=== PATIENT | female | born 1955 | race Caucasian/White ===

== ENCOUNTER → 2020-05-08 16:23 | Outpatient (CLI) | payer BC, SELFPAY ==
--- NOTE | ~2020-05-08 | XR_ITS ---
XR hip RT min 2V 05/08/2020 17:02 Indication: Right hip pain Procedure: 2 views right hip Comparison: No prior studies for comparison. Findings: There is severe osteoarthritis of the right hip characterized by joint space narrowing, sub chondral sclerosis and marginal osteophytosis. No fracture or traumatic malalignment. No significant soft tissue abnormality. No foreign bodies. Impression: 1: Severe osteoarthritis of the right hip. Reviewed, dictated and finalized at location A. Impression: 1: Severe osteoarthritis of the right hip.
--- NOTE | ~2020-05-08 | XR_ITS ---
XR lumbar spine 2-3V 05/08/2020 17:02 Indication: Low back pain Procedure: 3 views lumbar spine Comparison: No prior studies for comparison. Findings: There is disc narrowing at L4-5 and L5-S1 with moderate facet hypertrophy at these levels. There is prominent dorsal osteophytes at L4-5. There is degenerative anterolisthesis at L3-4. No acut e fracture or traumatic malalignment. There are cholecystectomy clips. Sacral foramen are symmetric. Impression: 1: Moderate lumbar spondylosis. Reviewed, dictated and finalized at location A. Impression: 1: Moderate lumbar spondylosis.
== END ==
PROVIDERS: PCP Internal Medicine; Visit Provider Internal Medicine
DX: M47.896 Other spondylosis, lumbar region (principal); M16.11 Unilateral primary osteoarthritis, right hip
CPT/HCPCS: 72100; 73502

== ENCOUNTER 2022-06-29 13:50 | Outpatient (CLI) | payer OTHER, SELFPAY ==
--- NOTE | ~2022-06-29 | XR_ITS ---
EXAMINATION: XR hip RT min 2V DATE: 06/29/2022 14:18 INDICATION: Right hip pain. TECHNIQUE: 2 views of right hip were obtained. COMPARISON: Right hip radiographs 05/08/2020 FINDINGS: Bone alignment is normal. No fracture. There is advanced right hip osteoarthritis. IMPRESSION: 1. Advanced right hip osteoarthritis. Reviewed, dictated and finalized at location A.
--- NOTE | ~2022-06-29 | XR_ITS ---
EXAM: XR lumbar spine 2-3V DATE: 06/29/2022 14:18 HISTORY: M25.551 - Pain in right hip NON TRAUMA PAIN . COMPARISON: 05/08/2020. FINDINGS: 5 nonrib-bearing lumbar-type vertebral bodies. Pedicles intact. Minimal grade 1 anterolist hesis of L3 on L4, likely on a degenerative basis, otherwise normal vertebral body alignment. Vertebr al body heights preserved. Moderate degenerative disc disease at L4-5 and L5-S1. Multilevel severe fa cet sclerosis and hypertrophy. No fracture or dislocation. Incidental note of severe right hip osteoa rthritis. IMPRESSION: Severe right hip osteoarthritis. Moderate lower lumbar degenerative disc disease. Multile jordi facet arthropathy. Reviewed, dictated and finalized at location K. IMPRESSION: Severe right hip osteoarthritis. Moderate lower lumbar degenerative disc disease. Multilevel facet arthropathy.
== END 2022-06-29 13:51 | disposition home or self-care (01) ==
PROVIDERS: PCP Internal Medicine; Visit Provider Internal Medicine
DX: M54.9 Dorsalgia, unspecified (principal); M25.551 Pain in right hip; M16.11 Unilateral primary osteoarthritis, right hip; M51.36 Other intervertebral disc degeneration, lumbar region; M12.88 Other specific arthropathies, not elsewhere classified, other specified site
CPT/HCPCS: 72100; 73502